=== PATIENT | male | born 1955 | race Caucasian/White ===

== ENCOUNTER 2016-07-05 17:16 | Emergency (ER) | payer OTHER ==
--- NOTE | ~2016-07-05 | ER ---
PATIENT'S NAME: [facility]AN[facility] AGE: 60 Y [address] ROOM: [place] [address] LOCATION: [facility] ADMIT DATE: 07/05/2016 ER/Outpatient Report DISCHARGE DATE: 07/05/2016 FAMILY PHYSICIAN: PHYSICIAN, NO ATTENDING PHYSICIAN: Ned Balbuena Time of Arrival: Admission date and time documented on the medical record. Time of Evaluation: I saw the patient at 1730 hours. CHIEF COMPLAINT: Left eye irritation. HISTORY OF PRESENT ILLNESS: This patient is a 60-year-old male who was grinding today about 6 hours ago, thinks he may have a metal foreign body in his left eye. He has a reddened, inflamed eye that is watery. No other complaints. HOME MEDICATIONS: None. ALLERGIES: NONE. SOCIAL HISTORY: Nonsmoker. Nondrinker. SIGNIFICANT PAST MEDICAL HISTORY: Negative. OPERATIONS: Open reduction and internal fixation of arm fracture. REVIEW OF SYSTEMS: All systems reviewed by me are negative with the exception of those discussed in the history of present illness. PHYSICAL EXAMINATION: VITAL SIGNS: Temperature 98.3, tympanic; pulse 69; respirations 16; blood pressure 131/88; and O2 saturation on room air is 93%. HEENT: On examination of the left eye, conjunctiva is injected; is watery. Extraocular muscles intact. PERRL. I could not visualize any foreign body on inspection of the cornea or conjunctiva. Everted the upper lid, there was no foreign body. Everted the lower lid, there was no foreign body. Fluorescein stain showed an abrasion at 10 o'clock on the left cornea, no foreign body noted. PATIENT'S NAME: CAR[facility]E [facility] AGE: 60 Y [address] ROOM: [place] [address] LOCATION: [facility] ADMIT DATE: 07/05/2016 ER/Outpatient Report DISCHARGE DATE: 07/05/2016 FAMILY PHYSICIAN: PHYSICIAN, NO ATTENDING PHYSICIAN: Ned Balbuena IMPRESSION: Abrasion, left cornea. PLAN: We did place erythromycin ophthalmic ointment in the eye here in the emergency department. The patient dismissed home. Observation. Activity as tolerated. Erythromycin ophthalmic ointment. Place a strip in the lower lid and work into the left eye 4 times a day for 5 to 7 days. Warm moist packs to the left eye intermittently as needed. Follow up with personal physician as needed. Discussion ensued with the patient concerning my findings and recommendations, he understands. MD VINCENT HOWARD/kale /[id number] d: 07/05/16 2357 t: 07/06/16 0651, OUTPATIENT REPORT
== END 2016-07-05 17:52 | disposition disaster alternative care site (69) ==
LOC: GACC 17:16
DX: S05.02XA Injury of conjunctiva and corneal abrasion without foreign body, left eye, initial encounter (principal); X58.XXXA Exposure to other specified factors, initial encounter